=== PATIENT | female | born 1935 | race Caucasian/White ===

== ENCOUNTER 2020-10-30 08:22 | Day surgery (SDC) | payer MEDICARE, OTHER ==
[~2020-10-30] VITALS: Ht 165.1 cm; Wt 71.4 kg
[~2020-10-30 08:22] MED LIST: BACL10TA PO; CALC-463; CANA300T PO; FEXO180T94 PO; GLIM4TAB7 PO; HYDR-3964 PO; LINA5TAB4 PO; LISI20TA28 PO; MULT-1141 PO; NEBI5TAB10 PO; OMEP-50 PO; POTA10TA19 PO; ROSU10TA2 PO; SERT-433 PO; WARF2.5T82 PO; WARF3TAB56 PO; [UNRECOGNIZED DRUG - OTHER]
[2020-10-30] MEDS ORDERED: albumin 25% 100mL bottle x 1 IV PRN (08:55)
[2020-10-30 09:00] VITALS: BP 174/89
[2020-10-30] MEDS ORDERED: PIOG30TA71 PO (09:16)
[2020-10-30] MEDS ORDERED: ATOR20TA66 PO (09:16)
[2020-10-30] MEDS ORDERED: LEVO50TA8 PO (09:18)
[2020-10-30 10:15] VITALS: BP 201/95
[2020-10-30 10:30] VITALS: BP 193/100
[2020-10-30 10:45] VITALS: BP 183/59
[2020-10-30 12:16] LABS: GLUCOSE,BODY FLUID 132 MG/DL; LDH,BODY FLUID 67 U/L; TOTAL PROTEIN,BODY FLUID 3.4 G/DL
[2020-10-30 13:04] LABS: LYMPHOCYTES,BODY FLUID 76 %; MONOCYTES,BODY FLUID 12 %; NEUTROPHILS,BODY FLUID 12 %
[2020-10-30 13:05] LABS: BF RBC COUNT 643 /CU MM; BF WBC COUNT 658 /CU MM (0-1000); BFAPPEAR HAZY; BFCOLOR YELLOW; BFVOLUME 50 ML
--- NOTE | 2020-10-30 13:06 | NUR ---
Called Dr. Gutierrez to read CXR. stated pt ok to be discharged.
[2020-10-30 13:10] VITALS: BP 156/125
== END 2020-10-30 13:10 | disposition home or self-care (01) ==
LOC: SSTAY O 08:22
PROVIDERS: ATTEND Radiology Diagnostic Radiology
DX: J90 Pleural effusion, not elsewhere classified (principal); Z20.822 Contact with and (suspected) exposure to COVID-19; E11.9 Type 2 diabetes mellitus without complications; E03.9 Hypothyroidism, unspecified; F32.9 Major depressive disorder, single episode, unspecified; E78.5 Hyperlipidemia, unspecified; I10 Essential (primary) hypertension; Z90.49 Acquired absence of other specified parts of digestive tract; I48.91 Unspecified atrial fibrillation; Z98.890 Other specified postprocedural states; Z87.891 Personal history of nicotine dependence; Z72.89 Other problems related to lifestyle; Z88.0 Allergy status to penicillin; Z79.01 Long term (current) use of anticoagulants; Z79.899 Other long term (current) drug therapy
CPT/HCPCS: 32555; 36415; 71045; 82945; 83615; 84157; 85610; 87070; 89051; U0003

== ENCOUNTER 2020-11-20 08:08 | Day surgery (SDC) | payer MEDICARE, OTHER ==
[~2020-11-20] VITALS: Ht 167.6 cm; Wt 68.8 kg
[~2020-11-20 08:08] MED LIST changes: +ATOR20TA66 PO; -BACL10TA PO; -FEXO180T94 PO; -GLIM4TAB7 PO; -HYDR-3964 PO; +LEVO50TA8 PO; -OMEP-50 PO; +PIOG30TA71 PO; -POTA10TA19 PO; -ROSU10TA2 PO; -WARF2.5T82 PO; -[UNRECOGNIZED DRUG - OTHER]
[2020-11-20 08:30] VITALS: BP 157/111
[2020-11-20] MEDS ORDERED: albumin 25% 100mL bottle x 1 IV PRN (08:50)
[2020-11-20] MEDS ORDERED: [UNRECOGNIZED DRUG - OTHER] PO (08:57)
[2020-11-20] MEDS ORDERED: WARF3TAB56 PO (08:57)
[2020-11-20 09:00] VITALS: BP 157/106
--- NOTE | 2020-11-20 10:10 | NUR ---
Thoracentesis not to be done today per NGUYEN Alvarado due to patient's INR 3. Patient rescheduled for thoracentesis on Friday 11/24 check-in at 0800. Per NGUYEN Alvarado, patient to take 1.5 mg of coumadin until she returns for her thoracentesis next Monday. Patient to check her INR Monday morning prior to coming in for her thoracentesis and if results are 2.5 or less, to come in for the thoracentesis. If higher, she is to call the unit to make us aware of the INR results. Explained this in detail to the patient and also wrote it down on her discharge instructions. Patient verbalized understanding. Patient taken out to son's car in w/c. All belongings with patient on d/c.
== END 2020-11-20 10:13 | disposition home or self-care (01) ==
LOC: SSTAY O 08:08
PROVIDERS: ATTEND Radiology Vascular & Interventional Radiology
DX: J90 Pleural effusion, not elsewhere classified (principal); Z53.8 Procedure and treatment not carried out for other reasons; E11.9 Type 2 diabetes mellitus without complications; E03.9 Hypothyroidism, unspecified; F32.9 Major depressive disorder, single episode, unspecified; E78.5 Hyperlipidemia, unspecified; I10 Essential (primary) hypertension; I48.91 Unspecified atrial fibrillation; Z90.49 Acquired absence of other specified parts of digestive tract; Z98.890 Other specified postprocedural states; Z88.0 Allergy status to penicillin; Z79.01 Long term (current) use of anticoagulants; Z79.899 Other long term (current) drug therapy; Z87.891 Personal history of nicotine dependence
CPT/HCPCS: 36415; 76604; 82948; 85610

== ENCOUNTER 2020-11-24 08:19 | Day surgery (SDC) | payer MEDICARE, OTHER ==
[~2020-11-24] VITALS: Ht 167.6 cm; Wt 68.1 kg
[~2020-11-24 08:19] MED LIST changes: +[UNRECOGNIZED DRUG - OTHER] PO
[2020-11-24 08:45] VITALS: BP 138/86
[2020-11-24] MEDS ORDERED: albumin 25% 100mL bottle x 1 IV PRN (08:45)
[2020-11-24 09:45] VITALS: BP 173/70
[2020-11-24 09:49] VITALS: BP 190/92
[2020-11-24 10:00] VITALS: BP 180/98
[2020-11-24 10:15] VITALS: BP 188/99
[2020-11-24] MEDS ORDERED: acetaminophen 325mg tablet PO ONE (10:20)
== END 2020-11-24 10:45 | disposition home or self-care (01) ==
LOC: SSTAY O 08:19
PROVIDERS: ATTEND Radiology Diagnostic Radiology
DX: J90 Pleural effusion, not elsewhere classified (principal); E11.9 Type 2 diabetes mellitus without complications; E03.9 Hypothyroidism, unspecified; F32.9 Major depressive disorder, single episode, unspecified; E78.5 Hyperlipidemia, unspecified; I10 Essential (primary) hypertension; I48.91 Unspecified atrial fibrillation; Z90.49 Acquired absence of other specified parts of digestive tract; Z98.890 Other specified postprocedural states; Z87.891 Personal history of nicotine dependence; Z88.0 Allergy status to penicillin; Z79.01 Long term (current) use of anticoagulants; Z79.899 Other long term (current) drug therapy
CPT/HCPCS: 32555; 36415; 71045; 82948; 85610

== ENCOUNTER 2021-01-12 09:08 | Day surgery (SDC) | payer MEDICARE, OTHER ==
[~2021-01-12] VITALS: Ht 170.2 cm; Wt 70.6 kg
[2021-01-12 09:31] VITALS: BP 139/83
[2021-01-12] MEDS ORDERED: normal saline 1000ml 1,000 ML IV PRN (09:40)
[2021-01-12] MEDS ORDERED: albumin 25% 100mL bottle x 1 IV PRN (09:40)
[2021-01-12 10:28] VITALS: BP 130/74
[2021-01-12 10:38] VITALS: BP 126/77
[2021-01-12 10:48] VITALS: BP 127/51
[2021-01-12 10:58] VITALS: BP 126/55
[2021-01-12 11:08] VITALS: BP 125/51
[2021-01-12 11:33] LABS: GLUCOSE,BODY FLUID 159 MG/DL; LDH,BODY FLUID 84 U/L; TOTAL PROTEIN,BODY FLUID 3.6 G/DL
[2021-01-12 11:53] LABS: BFAPPEAR HAZY
[2021-01-12 11:54] LABS: BF RBC COUNT 140 /CU MM; BF WBC COUNT 470 /CU MM (0-1000); BFCOLOR YELLOW; BFVOLUME 50 ML; EOSINOPHILS,BODY FLUID 2 %; LYMPHOCYTES,BODY FLUID 80 %; MONOCYTES,BODY FLUID 9 %; NEUTROPHILS,BODY FLUID 9 %
== END 2021-01-12 11:30 | disposition home or self-care (01) ==
LOC: SSTAY O 09:08
PROVIDERS: ATTEND Radiology Diagnostic Radiology
DX: J90 Pleural effusion, not elsewhere classified (principal); E03.9 Hypothyroidism, unspecified; E11.9 Type 2 diabetes mellitus without complications; F32.9 Major depressive disorder, single episode, unspecified; E78.5 Hyperlipidemia, unspecified; I10 Essential (primary) hypertension; I48.91 Unspecified atrial fibrillation; Z90.49 Acquired absence of other specified parts of digestive tract; Z88.0 Allergy status to penicillin; Z98.890 Other specified postprocedural states; Z87.891 Personal history of nicotine dependence; Z72.89 Other problems related to lifestyle; Z79.01 Long term (current) use of anticoagulants; Z79.899 Other long term (current) drug therapy
CPT/HCPCS: 32555; 36415; 82945; 83615; 84157; 85610; 89051